=== PATIENT | male | born 1975 | race Caucasian/White ===

== ENCOUNTER 2018-12-10 18:00 | Emergency (ER) | payer OTHER ==
--- NOTE | 2018-12-10 18:10 | PDOC ---
Attending Attestation - Resident Resident Name: Amrik Chacon - ED Attending Attestation I have performed the following: I have examined & evaluated the patient, The case was reviewed & discussed with the resident, I agree w/resident's findings & plan, Exceptions are as noted
[2018-12-10 18:12] VITALS: BP 135/91; PULSE 106; TEMP 98.6; BMI 31.6
[2018-12-10] MEDS ORDERED: hydrOXYzine PAMOATE 50 MG CAPSULE (FP) PO ONE (19:14)
[2018-12-10] MEDS ORDERED: KETOROLAC TROMETHAMINE 60 MG/2 ML VIAL IM ONE (19:14)
--- NOTE | 2018-12-10 19:16 | PDOC ---
History of Present Illness - General Chief Complaint: Back Pain Stated Complaint: BACK PAIN Time Seen by Provider: 12/10/18 18:10 Past History - Past Medical History Allergies/Adverse Reactions: Allergies Allergy/AdvReac Type Severity Reaction Status Date / Time No Known Allergies Allergy Verified 12/10/18 18:07 Home Medications: Ambulatory Orders Diclofenac Sodium 50 mg PO QID #20 tablet. 12/10/18 hydrOXYzine PAMOATE [Vistaril -] 50 mg PO QID #20 capsule 12/10/18 Cancer: Yes (NON [facility] 1998) COPD: No Other medical history: 1999 AVASCULAR NECROSIS - Psycho Social/Smoking Cessation Hx Smoking History: Never smoked Have you smoked in the past 12 months: No Information on smoking cessation initiated: No Hx Alcohol Use: No *Physical Exam - Vital Signs Last Vital Signs Temp Pulse Resp BP Pulse Ox 98.6 F 106 H 20 135/91 100 12/10/18 18:00 12/10/18 18:00 12/10/18 18:00 12/10/18 18:00 12/10/18 18:00 Discharge - Discharge Information Problems reviewed: Yes Clinical Impression/Diagnosis: Low back strain Qualifiers: Encounter type: initial encounter Qualified Code(s): S39.012A - Strain of muscle, fascia and tendon of lower back, initial encounter Condition: Improved Disposition: HOME - Admission No - Additional Discharge Information Prescriptions: Diclofenac Sodium 50 mg PO QID #20 tablet.dr Maya PAMOATE [Vistaril -] 50 mg PO QID #20 capsule - Follow up/Referral Referrals: Olman Padilla MD [Staff Physician] - 1 week - Patient Discharge Instructions Patient Printed Discharge Instructions: DI for Low Back Pain Additional Instructions: Ice massage alternating with heat Medication as directed Avoid sitting. Lie on a firm flat surface or do some walking and gentle stretching. No prolonged standing or walking. See back specialist if no improvement in 1 week as directed. - Post Discharge Activity
[2018-12-10] MEDS ORDERED: KETOROLAC TROMETHAMINE 60 MG/2 ML VIAL ONE (19:19)
[2018-12-10] MEDS ORDERED: hydrOXYzine PAMOATE 25 MG CAPSULE (FP) PO ONE (19:19)
== END 2018-12-10 20:13 | disposition home or self-care (01) ==
LOC: FER 18:00
PROC: 3E0233Z Introduction of Anti-inflammatory into Muscle, Percutaneous Approach (ICD-10-PCS; principal; 2018-12-10)
DX: S39.012A Strain of muscle, fascia and tendon of lower back, initial encounter (principal); M87.9 Osteonecrosis, unspecified; Z85.72 Personal history of non-Hodgkin lymphomas
CPT/HCPCS: 99283-25